=== PATIENT | female | born 1945 | race Caucasian/White ===

== ENCOUNTER → 2018-08-11 10:14 | Outpatient (CLI) | payer MEDICARE, BC, SELFPAY ==
[2018-08-11 10:41] LABS: Bacteria Urine None Seen; WBC Urine None Seen (0-5/HPF)
[2018-08-11 11:38] LABS: Add Manual Diff / Slide Review NO; Basophils Absolute Auto 0 /uL (0-100); Basophils Percent Auto 0.3 % (0-2); Eosinophils Absolute Auto 0 /uL (0-450); Eosinophils Percent Auto 0.7 % (2-4); Hematocrit 37.9 % (36-46); Hemoglobin 12.5 g/dL (12.0-16.0); Lymphocytes Absolute Auto 1900 /uL (1100-4500); Lymphocytes Percent Auto 28.8 % (25-40); Mean Corpuscular Hemoglobin 30.2 PG (26-34); Mean Corpuscular Volume 91.7 fL (80-100); Monocytes Absolute Auto 500 /uL (0-900); Neutrophils Absolute Auto 4000 /uL (1500-7000); Neutrophils Percent Auto 62.2 % (50-75); Platelet Count 257 X10^3/uL (150-400); Red Blood Cell Count 4.13 X10^6/uL (4.0-5.2); Red Cell Distribution Width 12.9 % (11.6-14.8); White Blood Cell Count 6.5 X10^3/uL (4.5-11.0)
[2018-08-11 11:55] LABS: BUN Creatinine Ratio 23.3 (6-22); Blood Urea Nitrogen 14 mg/dL (7-17); Calcium 9.2 mg/dL (8.4-10.2); Carbon Dioxide 31 mmol/L (22-32); Chloride 101 mmol/L (98-107); Estimated Glomerular Filt Rate > 60.0 mL/min (>60); Glucose 100 mg/dL (80-110); HEMOLYSIS < 15 (0-50); Potassium 4.2 mmol/L (3.4-5.1); Sodium 138 mmol/L (137-145)
[2018-08-11 12:37] LABS: Hemoglobin A1C% w Est Avg Glu 5.8 % (4.0-6.0)
[2018-08-11 13:06] LABS: Appearance Urine UA CLEAR; Bilirubin Urine UA NEGATIVE (NEGATIVE); Color Urine UA YELLOW; Glucose Urine UA NEGATIVE (Negative); Ketones Urine UA NEGATIVE (NEGATIVE); Leukocyte Esterase Urine UA NEGATIVE (NEGATIVE); Nitrite Urine UA NEGATIVE (Negative); Occult Blood Urine UA TRACE-LYSED (Negative); Protein Urine UA NEGATIVE (Negative); Specific Gravity Urine UA >=1.030 (1.000-1.035); Urobilinogen Urine UA 0.2 E.U./dL (0.2)
[2018-08-11 13:22] LABS: Culture Indicated Urine Cult Not Indicated; RBC Urine 0-1/HPF (0-5/HPF); Squamous Epithelial Cell Urine None Seen
== END ==
PROVIDERS: Visit Provider Orthopaedic Surgery
DX: Z01.818 Encounter for other preprocedural examination (principal); Z01.812 Encounter for preprocedural laboratory examination; N39.9 Disorder of urinary system, unspecified; Z13.1 Encounter for screening for diabetes mellitus
CPT/HCPCS: 36415; 80048; 81001; 83036; 85025; 93005

== ENCOUNTER → 2018-08-24 11:36 | Outpatient (CLI) | payer MEDICARE, BC, SELFPAY ==
--- NOTE | 2018-08-24 | DI.MRI.S_ITS ---
PROCEDURE: MR KNEE LT WO CON INDICATIONS: LEFT KNEE OSTEOARTHRITIS TECHNIQUE: Noncontrast sagittal PD fast spin echo and T2 fast spin echo with fat saturation, sagittal 3-D FLASH with fat saturation; coronal T1 spin echo and PD fast spin echo with fat saturation, and axial PD fast spin echo with fat saturation through the knee. COMPARISON: [facility] [place], CR, XR KNEE ARTHRITIC SERIES BI, 08/11/2018, 9:22. FINDINGS: Image quality: Excellent. Menisci: Medial extrusion of the medial meniscus. Linear oblique tearing of the anterior horn lateral masses. Amorphous high signal intensity within the anterior horn, body, and posterior horn medial meniscus, with inferior and superior articular surface extension, indicating multifocal degenerative tearing. Lateral meniscus demonstrates degenerative fraying of the free head chest, and is otherwise intact. Cruciate ligaments: The posterior cruciate ligament is intact. There is diffusely decreased T1 and increased T2 signal intensity along the course of the anterior cruciate ligament, indicating myxoid degeneration. Attenuation of the anterior cruciate ligament at the tibial insertion is present, consistent with partial thickness tearing. Medial structures: The medial collateral ligament appears intact. Visualized portions of the pes anserinus tendons appear normal. No abnormal bursal fluid. Lateral structures: The lateral collateral ligament, long and short heads of the biceps femoris tendon appear intact. The popliteus tendon appears normal. Iliotibial band appears normal. Anterior structures: The quadriceps and patellar tendons appear intact. Patellar alignment is normal. No femoral trochlear dysplasia or ventral trochlear prominence. No edema in the infrapatellar fat pad. Bones and cartilage: No bone marrow contusions or fractures. There is severe tricompartmental periarticular osteophyte formation. There is mild ill-defined subchondral degenerative marrow edema within the weightbearing aspects of the medial femoral condyle and medial tibial plateau, as well as the weightbearing aspect of the lateral femoral condyle. Severe diffuse articular cartilage loss overlies the weightbearing aspects of the medial femoral condyle and medial tibial plateau. Focal region of severe articular cartilage loss overlies the medial posterior weightbearing aspect of the lateral femoral condyle. Mild diffuse articular cartilage loss overlies the lateral tibial plateau. Mild articular cartilage loss overlies the medial and lateral patellar facets as well as the medial and lateral femoral trochlea. Joint space: There is a moderate knee joint effusion and a trace Soto's cyst. There is a ganglion cyst along the popliteus, measuring roughly 35 mm. Normal appearing synovial plicae are incidentally noted. IMPRESSION: 1. Severe tricompartment osteoarthritis with associated articular cartilage loss. 2. Myxoid degeneration of the anterior cruciate ligament. Partial-thickness tearing of the anterior cruciate ligament. 3. Medial meniscal tearing. Degenerative fraying of the free edge of the lateral meniscus. 4. Knee joint effusion. Trace Soto's cyst. Ganglion cyst along the popliteus. Dictated by: Heena Villeda M.D. on 08/24/2018 at 14:27 Approved by: Heena Villeda M.D. on 08/24/2018 at 14:51
== END ==
PROVIDERS: Visit Provider Orthopaedic Surgery
DX: M17.12 Unilateral primary osteoarthritis, left knee (principal); M23.262 Derangement of other lateral meniscus due to old tear or injury, left knee; M23.212 Derangement of anterior horn of medial meniscus due to old tear or injury, left knee; M23.222 Derangement of posterior horn of medial meniscus due to old tear or injury, left knee; M25.462 Effusion, left knee; M67.462 Ganglion, left knee
CPT/HCPCS: 73721

== ENCOUNTER 2018-09-26 09:00 | Observation (INO) | payer MEDICARE, BC, SELFPAY ==
[2018-09-11 12:53] VITALS: BMI 23.3
[2018-09-26] VITALS (12 sets, daily range): BP systolic 103–142; BP diastolic 48–83; PULSE 60–81; RESP 13–20; TEMP 36.2–36.7; O2SAT 95–100; BMI 23.3
--- NOTE | 2018-09-26 08:48 | DI.RAD.S_ITS ---
PROCEDURE: XR KNEE LT 1TO2V INDICATIONS: Postop left total knee arthroplasty. TECHNIQUE: 2 view(s) of the knee acquired. COMPARISON: None. FINDINGS: Bones: Patient is status post knee joint arthroplasty. Hardware components are in expected positions. Visualized bony structures are intact. Soft tissues: Overlying postoperative changes are noted. IMPRESSION: Status post left knee arthroplasty. Dictated by: Frances Deal M.D. on 09/26/2018 at 13:12 Approved by: Frances Deal M.D. on 09/26/2018 at 13:12
[2018-09-26] MEDS: LACTATED RINGERS 1,000 ML 42 ML IV ×2 (09:15→11:31)
[2018-09-26] MEDS: MELOXICAM 7.5 MG TABLET 15 MG PO (09:25)
[2018-09-26] MEDS: PREGABALIN 75 MG CAPSULE PO (09:25)
[2018-09-26] MEDS: ACETAMINOPHEN 325 MG TABLET 975 MG PO ×3 (09:25→22:11)
[2018-09-26] MEDS: VANCOMYCIN 1,000 MG/200 ML FROZ.PIGGY 200 MG IV (09:45)
[2018-09-26] MEDS: CEFAZOLIN 2 GM/100 ML FROZ.PIGGY IV ×2 (10:32→19:00)
[2018-09-26] MEDS: TRANEXAMIC ACID 1,000 MG VIAL 1000 MG IV ×2 (10:50→12:12)
--- NOTE | 2018-09-26 11:04 | SUR.OPER ---
Supine on padded OR bed. Pillow under head, arms secured on padded armboards <90 degree abduction. Safety belt across torso. Non-operative leg secured with tape over blanket over lower leg. Operative leg secured in DeMayo/Rigoberto positioner. Foam padded brace at thigh of operative leg.
[2018-09-26] MEDS: BUPIVACAINE 0.25% W/ EPI VIAL 50 ML INJ (11:17)
[2018-09-26] MEDS: BUPIVACAINE LIPOSOME 266 MG/20 ML VIAL INJ (11:18)
--- NOTE | 2018-09-26 13:20 | PM.OP.1 ---
Operative Date/Time/Diagnoses Date of procedure: 09/26/18 Time of procedure: 10:58 Pre-op diagnosis: Left knee osteoarthritis Post-op diagnosis: same Procedure & Clinicians Procedure: Left total knee arthroplasty Same procedure as scheduled: Yes Indications: The patient has had progressively worsening left knee pain with radiographic changes consistent with arthritis. Non-operative management has failed and the patient has requested total knee replacement. The risks, benefits and alternatives to surgery were discussed with the patient prior to proceeding. Risks discussed included, but were not limited to, failure to relieve pain, stiffness, infection, nerve damage, deep venous thrombosis, pulmonary embolism, stroke, coma, heart attack, permanent paralysis and , as well as the potential need for eventual revision of the prosthetic. Surgeon: Chitra Campa Gaming Department Head: Rosalia Monique Anesthesia Type: Spinal Operative Notes Findings: Severe left knee osteoarthritis, adequate stability Closure Type: primary Prosthetic devices, grafts, tissues, transplants, or devices: Campa and Nephew size 4 left tibia, size 6 left femur JOURNEY BCSS2, size 9 poly, 35 mm by 9 patella Applied: drain(s) Estimated Blood Loss (mL): 250 Blood products transfused: none Tourniquet time (min): 72 Procedure in detail: The patient was seen in the pre-operative area, where the patient identified the left knee as the operative site and this was marked with my initials. The patient received pre-operative antibiotics, and was taken to the operating room and placed on the operative table in the supine position. After satisfactory anesthesia, a part time receptionist out was performed. The left leg was encircled with a tourniquet about the proximal thigh, and the leg was prepared from the toes to the tourniquet with ChloroPrep in the usual fashion and draped through sterile drapes. The leg was elevated and exsanguinated with Eschmark bandage and the tourniquet inflated to [250] mmHg pressure. The knee was approached through an approximately 18 cm incision centered over the patella and carried into the knee through a medial parapatellar arthrotomy. A portion of the medial and lateral meniscus was resected. Soft tissue was carefully mobilized around the patella the patella was measured with a caliper. Bone was resected from the patella and the patellar height was reconstituted with up an appropriate sized patellar component. For a cover was then placed on the patella. A small amount of additional medial and lateral meniscus was resected. The visionare guide fit well to the distal femur. It looked like an appropriate distal femoral cut and the cut was made without difficulty. The rotation was assessed and the appropriate size femoral guide was placed on the distal femur and finishing cuts were made. There was no evidence of notching. The anterior, posterior and chamfer cuts were then made. The posterior osteophytes and soft tissues were then removed. The posterior capsule was injected with part of a mixture of 60 ml 0.25% Marcaine mixed with 20 ml Exparel for post operative pain control. The remainder of this mixture was injected into the capsule and subcutaneous tissues during cement curing. The tibia was prepared and the visionaire guide fit well to the distal tibia. The rotation was assessed. The patient was placed in extension residual medial and lateral meniscus as well as any residual bone was carefully resected. [No] additional tibia was resected. Hemostasis was achieved especially posteriorly. Additional local was injected into the posterior capsule. The extension gap was assessed and additional releases for gap balancing were performed as necessary. It was checked with the gap library media technician. The femoral component was trial was placed and the notch was finished. Trial tibial and femoral components were then placed and the knee placed through a range of motion. Range of motion was [0-130], with good stability throughout the range. The trials were then removed, and the tibia was finished. The bone was prepared with pulsatile lavage, and dried with a sponge. Cement was applied and the final prosthetics placed. Excess cement was removed during and after cement curing. After confirming there was no extruded cement posteriorly, the final tibial insert was placed. The knee was copiously irrigated and the tourniquet deflated. Hemostasis was obtained with the bovie. A drain was placed and brought out superolaterally. The capsule was closed with interrupted vicryl. The subcutaneous layer was closed with barbed sutures, and the skin with a running 3-0 V-Lock suture and Surgical glue. An Aquacel Ag dressing was applied and the patient was taken to recovery having tolerated the procedure well. Complications: none Condition: stable Disposition: Acute Care Plan for aftercare: The patient will be maintained on a standard total knee replacement protocol with weight bearing as tolerated. The patient will receive aspirin and sequential compression devices for DVT prophylaxis. The patient will be discharged home when safe for the home environment.
[2018-09-26] MEDS: LACTATED RINGERS 1,000 ML 125 ML IV ×2 (14:24→22:56)
--- NOTE | 2018-09-26 14:48 | PC.NURSE ---
1350 Pt arrived via bed from PACU. Pt A&Ox3. dressing w/ar wrap to L knee surgsite intact, C&D. Hemovac in place & clamped, to be unclamped at 1450. Pt able to do ankle waves, SCDs placed BLE,1430 IV fluids infusing. Pt has own IS from home, is aware of how to use. Pt taking in PO fluids & crackers. Friends at bedside, no c/o.
--- NOTE | 2018-09-26 16:30 | PT.IIE ---
Current Diagnoses Unilateral primary osteoarthritis, left knee (09/26/18) Surgery Performed Operation Date: 09/26/18 10:45 Actual Procedures p Total Knee Arthroplasty(Left) - Chitra Campa MD Surgical History (Last Updated 09/11/18 @ 13:21 by Savannah Lopez, RN) History of colonoscopy with polypectomy (Acute) Hx of right knee surgery (Acute) Hx of tonsillectomy (Acute) Medical History (Last Updated 09/11/18 @ 13:21 by Savannah Lopez RN) Arthritis (Acute) BCC (basal cell carcinoma) (Acute ~2018) Bilateral leg cramps (Acute) Carpal tunnel syndrome of right wrist (Acute) Compressed cervical disc (Acute) Eczema of both hands (Acute) Numbness and tingling in both hands (Acute) Osteoarthritis (Acute) Pneumonia (Acute) Seasonal allergies (Acute) Shoulder pain (Acute) Spinal stenosis (Acute) Physical Therapy Inpatient Evaluation/Re-Eval M1 PT/OT-IP Prior Functional Status Start: 09/26/18 17:44 Freq: NEEDED Status: Active Protocol: Document 09/26/18 16:30 AB (Rec: 09/26/18 17:56 AB [id number]) Medical Review Prior Functional Status Medical History Reviewed Yes Communication able to make needs known Mobility and Gait pt stated that she is independent with all mobilities and ambulation without AD Social History Household Members none Living Arrangements House Number of Floors (Floors) One Floor Number of Stairs To Enter/Railing? pt plans to stay at her friend 's house : 1 level house with 18 steps to enter with R rail ascending Home Environment Standard Height Toilet Tub/Shower Home Equipment Front Wheel Walker Straight Cane Crutches Raised Toilet Seat Without Armrests Grab Bars Near Toilet Grab Bars In Shower M2 PT-IP Current Condition Start: 09/26/18 17:44 Freq: NEEDED Status: Active Protocol: Document 09/26/18 16:30 AB (Rec: 09/26/18 17:56 AB [id number]) Physical Therapy Current Condition Current Condition Evaluation Date 09/26/18 Treatment Diagnosis s/p L TKA; difficulty in walking Onset Date 09/26/18 Weight Bearing Status Weight Bearing Status Weight Bear as Tolerated M3 PT-IP Subjective Start: 09/26/18 17:44 Freq: NEEDED Status: Active Protocol: Document 09/26/18 16:30 AB (Rec: 09/26/18 17:56 AB [id number]) Subjective Physical Therapy Visit Type Type Initial Evaluation Visit Start Time 16:30 Visit Stop Time 17:15 Total Visit Minutes 45 Number of ART EDITOR Visits 0 Physical Therapy Visit Comments Patient Comments pt requesting to use the toilet Therapy Pain Assessment Pain When Pain Assessed At Rest Pain Present Pain Present Pain Reported Location Left Knee Intensity 5 Scale Used Numeric (1 - 10) Description Cramping Pain Management Techniques Apply Cold Re-positioning Timing of Activity with Medications M4 PT-IP Mobility and Gait Start: 09/26/18 17:44 Freq: NEEDED Status: Active Protocol: Document 09/26/18 16:30 AB (Rec: 09/26/18 17:56 AB [id number]) PT-Bed Mobility Assessment Supine to Sit Supine to Sit Standby Assistance 1 Person Assistance Sit to Supine Sit to Supine Standby Assistance PT-Transfer Assessment Sit to and From Stand Sit to and from Stand Minimal Assistance Equipment Transfer Assistive Device Gait Belt Front Wheeled Walker Orthotic/Prosthetic Devices or Brace: No Transfers Transfer Destination Toilet Transfer Technique pt ambulated to the toilet using FWW Transfer Ability Level of Assist Minimal Assistance 1 Person Assistance Comments Mobility Comments pt completed bed mobility supine to sit SBA with cues for techniques. pt was able to sit on EOB SBA. completed sit to stand from EOB min A and cues and ambulated to the toilet using FWW ~ 10 ft min A and cues. pt completed is to stand from the toilet using grab bar for support CGA and ambulated towards the sink and was able to maintain standing balance using fWW for support CGA while doing handwashing. pt ambulated back to bed using FWW CGA to min A and cues. pt completed sit to supine SBA and cues. ice pack provided, call light and table placed within reach. Gait Assessment Gait Distance (Feet) 10 Assistive Devices Assistive Device Gait Belt Front Wheeled Walker Orthotic/Prosthetic Devices or Brace: No Gait Deviations General Gait Pattern Antalgic Decreased Stride Length Decreased Feet Clearance Factors Limiting Gait Function Factors Limiting Gait Function Decreased Activity Tolerance Decreased Strength Limited Range of Motion Pain Poor Balance Poor Safety Awareness PT-Balance Assessment Sitting Balance and Reactions Static Sitting Balance Ability Good Dynamic Sitting Balance Ability Good Standing Balance and Reactions Static Standing Balance Ability Fair Dynamic Standing Balance Ability Fair Device Used FWW M5 PT-IP Objective Assessments Start: 09/26/18 17:44 Freq: NEEDED Status: Active Protocol: Document 09/26/18 16:30 AB (Rec: 09/26/18 17:56 AB [id number]) Orientation Orientation/Cognition Level of Alertness Alert Orientation Name Age Place Situation Language Function Ability No Deficits Noted Safety Awareness Decreased Safety Awareness Memory Description Short Term Impaired Gross Range of Motion Lower Extremity ROM Assessment Left Impaired Impairments L knee extension : lacking ~ 10 degrees to O L knee flexion: ~ 50 deg Strength Lower Extremity Strength Assessment Left Impaired Hip 4-/5 Knee 3+/5 Coordination Assessment Gross Coordination Gross Coordination WNL Sensation Assessment Sensation Gross Sensation WNL Muscle Tone Muscle Tone WNL Yes M6 PT-IP Treatment Start: 09/26/18 17:44 Freq: NEEDED Status: Active Protocol: Document 09/26/18 16:30 AB (Rec: 09/26/18 17:56 AB [id number]) Physical Therapy Treatment Exercises Exercises Quad Sets Heel Slides Education Education Provided Precautions Weight Bearing Status Post-Op Packet Safety M7 PT-IP Assessment and Plan Start: 09/26/18 17:44 Freq: NEEDED Status: Active Protocol: Document 09/26/18 16:30 AB (Rec: 09/26/18 17:56 AB [id number]) PT Summary Assessment and Plan Potential Rehabilitation Potential Good Status of Condition at Evaluation Stable Summary Impairments Pain ROM Strength Balance Coordination Bed Mobility Transfers Gait Activity Tolerance Assessment Summary pt requiring min A with mobility and will likely progress during hospital stay. will conduct caregiver training if appropriate. stair climbing training will also be completed prior to d/c . pt stated that she is set up for outpt PT. Goals Bed Mobility Goal Standby Assistance Transfer Goal Standby Assistance Front Wheeled Walker Gait Goal Standby Assistance Front Wheel Walker Gait Distance 200 Other Goals up/down 18 steps with R rail ascending SBA Days to Meet Goals 3 Frequency of Treatment Frequency Of Treatment Twice a Day Treatment Plan Physical Therapy Treatment Plan Bed Mobility Training Transfer Training Gait Training Therapeutic Exercise Balance Retraining Post Op Education Discharge Planning Hot or Cold Pack Neuromuscular Re-ed Coordination Retraining Manual Therapy Other Recommendations and Next Treatment ambulation, stair climbing Focus training Recommendations To Nursing Amount of Assist Needed 1 Person Assist Discharge Recommendations PT Discharge Recommendations Home with Assistance Outpatient PT
[2018-09-26] MEDS: NAPROXEN 250 MG TABLET 500 MG PO (17:05)
[2018-09-26] MEDS: hydrOXYzine pamoate 25 MG CAPSULE PO ×2 (17:28→23:55)
--- NOTE | 2018-09-26 19:33 | PC.NURSE ---
Addendum entered by Abiola Lagos R.N. 09/26/18 22:24: Stable post op course. Assisted to BR x 2 IVF continue as per orders. Dsg CDI Call light w/n reach, bed alarm on for pt safety. Continue w/plan of care. Original Note: Pt stable post op course. Dsg to left knee CDI IVF infusing via pump into LFA w/o incidense. Assisted to BR. Med at 1705 w/ naproxan for discomfort w/good relief. Call light w/in reach, bed alarm on for pt safety.
[2018-09-26] MEDS: ASPIRIN EC 81 MG TABLET PO (22:12)
[2018-09-27] MEDS: CEFAZOLIN 2 GM/100 ML FROZ.PIGGY IV (02:48)
[2018-09-27] MEDS: OXYCODONE IR 5 MG TABLET PO ×3 (02:59→11:59)
[2018-09-27 05:10] VITALS: BP 122/56; PULSE 65; RESP 16; TEMP 37.2; O2SAT 99
[2018-09-27 05:53] LABS: Hematocrit 32.6 % (36-46); Hemoglobin 10.8 g/dL (12.0-16.0)
[2018-09-27 07:00] VITALS: BP 133/66; PULSE 76; RESP 16; TEMP 37; O2SAT 96
[2018-09-27] MEDS: hydrOXYzine pamoate 25 MG CAPSULE PO (08:00)
[2018-09-27] MEDS: ACETAMINOPHEN 325 MG TABLET 975 MG PO ×3 (08:01→21:13)
[2018-09-27] MEDS: DOCUSATE 100 MG CAPSULE PO (08:58)
[2018-09-27] MEDS: ASPIRIN EC 81 MG TABLET PO ×2 (08:58→21:14)
[2018-09-27] MEDS: NAPROXEN 250 MG TABLET 500 MG PO ×2 (08:58→18:49)
--- NOTE | 2018-09-27 09:27 | PM.PNPO.1 ---
Subjective Date Patient Seen: 09/27/18 Time Patient Seen: 09:27 Interval history: Hospital day 2, postop day 1 following left total knee arthroplasty by Dr. Campa. She has remained stable postoperatively. States she did not get much sleep last night because of knee pain. Was up briefly with PT yesterday just in the room to the bathroom. Taking oxycodone 5 mg for pain. Also taking naproxen 500 mg and Tylenol. Continues having a drainage from Hemovac with 120 mL her last shift. Exam Vital Signs (past 8 hours): - 09/27/18 05:10 09/27/18 07:00 Temperature 99 F 98.6 F Pulse Rate 65 76 Respiratory Rate 16 16 Blood Pressure 122/56 L 133/66 Pulse Oximetry 99 96 Oxygen Delivery Method Room Air Narrative Exam Narrative: Alert, oriented no acute distress sitting in chair. Legs. Mikel wrap an Aquacel dressing to left knee is dry without drainage or inflammation. Hemovac in place. No calf pain or swelling. Pulses symmetrical. Objective Labs Result Diagrams: 09/27/18 05:06 Labs: Laboratory Results - last 24 hr 09/27/18 05:06 Hgb 10.8 L Hct 32.6 L Assessment & Plan Post-op Postoperative Procedures Operation Date: 09/26/18 10:45 Actual Procedures Side Surgeon p Total Knee Arthroplasty Left Chitra Campa MD Plan: Will observe for hopeful decrease in Hemovac drainage today. Will need drainage to decrease significantly before DC. Patient will remained today and work with PT. She does have several stairs at home she will be staying at. Will increase oxycodone dose to get better pain control. Anticipate possible discharge home tomorrow if stable. She is scheduled to go to [facility] for PT. Quality VTE Deep Vein Thrombosis/Pulmonary Embolism Present on Admission: No
--- NOTE | 2018-09-27 10:55 | PT.IPTN ---
Current Diagnoses Unilateral primary osteoarthritis, left knee (09/26/18) Surgery Performed Operation Date: 09/26/18 10:45 Actual Procedures p Total Knee Arthroplasty(Left) - Chitra Campa MD Physical Therapy Treatment Note M2 PT-IP Current Condition Start: 09/26/18 17:44 Freq: NEEDED Status: Active Protocol: Document 09/26/18 16:30 AB (Rec: 09/26/18 17:56 AB [id number]) Physical Therapy Current Condition Current Condition Evaluation Date 09/26/18 Treatment Diagnosis s/p L TKA; difficulty in walking Onset Date 09/26/18 Weight Bearing Status Weight Bearing Status Weight Bear as Tolerated M3 PT-IP Subjective Start: 09/26/18 17:44 Freq: NEEDED Status: Active Protocol: Document 09/27/18 11:20 GGD (Rec: 09/27/18 12:38 GGD [id number]) Subjective Physical Therapy Visit Type Type Treatment Note Visit Start Time 10:55 Visit Stop Time 11:20 Total Visit Minutes 25 Number of WAFER MACHINE OPERATOR Visits 1 Physical Therapy Visit Comments Patient Comments Pt states she is feeling better. Therapy Pain Assessment Pain When Pain Assessed At Rest Pain Present Pain Present Pain Reported M4 PT-IP Mobility and Gait Start: 09/26/18 17:44 Freq: NEEDED Status: Active Protocol: Document 09/27/18 11:20 GGD (Rec: 09/27/18 12:38 GGD [id number]) PT-Transfer Assessment Sit to and From Stand Sit to and from Stand Contact Guard Assistance Use of Upper Extremities Equipment Transfer Assistive Device Gait Belt Front Wheeled Walker Orthotic/Prosthetic Devices or Brace: No Transfers Transfer Destination Chair Transfer Ability Level of Assist Minimal Assistance 1 Person Assistance Gait Assessment Gait Gait Assistance Required: Contact Guard Assist Distance (Feet) 100 Assistive Devices Assistive Device Gait Belt Front Wheeled Walker Orthotic/Prosthetic Devices or Brace: No Gait Deviations General Gait Pattern Antalgic Decreased Stride Length Decreased Feet Clearance Factors Limiting Gait Function Factors Limiting Gait Function Decreased Activity Tolerance Decreased Strength Limited Range of Motion Pain Poor Balance Poor Safety Awareness M5 PT-IP Objective Assessments Start: 09/26/18 17:44 Freq: NEEDED Status: Active Protocol: Document 09/26/18 16:30 AB (Rec: 09/26/18 17:56 AB [id number]) Orientation Orientation/Cognition Level of Alertness Alert Orientation Name Age Place Situation Language Function Ability No Deficits Noted Safety Awareness Decreased Safety Awareness Memory Description Short Term Impaired Gross Range of Motion Lower Extremity ROM Assessment Left Impaired Impairments L knee extension : lacking ~ 10 degrees to O L knee flexion: ~ 50 deg Strength Lower Extremity Strength Assessment Left Impaired Hip 4-/5 Knee 3+/5 Coordination Assessment Gross Coordination Gross Coordination WNL Sensation Assessment Sensation Gross Sensation WNL Muscle Tone Muscle Tone WNL Yes M6 PT-IP Treatment Start: 09/26/18 17:44 Freq: NEEDED Status: Active Protocol: Document 09/27/18 11:20 GGD (Rec: 09/27/18 12:38 GGD [id number]) Physical Therapy Treatment Exercises Exercises Quad Sets Heel Slides Seated Knee Flexion/Extension Education Education Provided Precautions Safety M7 PT-IP Assessment and Plan Start: 09/26/18 17:44 Freq: NEEDED Status: Active Protocol: Document 09/27/18 11:20 GGD (Rec: 09/27/18 12:38 GGD [id number]) PT Summary Assessment and Plan Summary Assessment Summary Pt improving with mobility. She was safe with mobility. She was able to progress gait without LOB. She will need to completed stair climbing before D/C. Frequency of Treatment Frequency Of Treatment Twice a Day Treatment Plan Physical Therapy Treatment Plan Bed Mobility Training Transfer Training Gait Training Therapeutic Exercise Balance Retraining Post Op Education Discharge Planning Hot or Cold Pack Neuromuscular Re-ed Coordination Retraining Manual Therapy Other Recommendations and Next Treatment ambulation, stair climbing Focus training Recommendations To Nursing Amount of Assist Needed 1 Person Assist Discharge Recommendations PT Discharge Recommendations Home with Assistance Outpatient PT
[2018-09-27 12:00] VITALS: BP 113/58; PULSE 85; RESP 16; TEMP 36.5; O2SAT 98
--- NOTE | 2018-09-27 15:15 | PT.IPTN ---
Current Diagnoses Unilateral primary osteoarthritis, left knee (09/26/18) Surgery Performed Operation Date: 09/26/18 10:45 Actual Procedures p Total Knee Arthroplasty(Left) - Chitra Campa MD Physical Therapy Treatment Note M2 PT-IP Current Condition Start: 09/26/18 17:44 Freq: NEEDED Status: Active Protocol: Document 09/26/18 16:30 AB (Rec: 09/26/18 17:56 AB [id number]) Physical Therapy Current Condition Current Condition Evaluation Date 09/26/18 Treatment Diagnosis s/p L TKA; difficulty in walking Onset Date 09/26/18 Weight Bearing Status Weight Bearing Status Weight Bear as Tolerated M3 PT-IP Subjective Start: 09/26/18 17:44 Freq: NEEDED Status: Active Protocol: Document 09/27/18 15:15 GGD (Rec: 09/27/18 16:17 GGD [id number]) Subjective Physical Therapy Visit Type Type Treatment Note Visit Start Time 14:40 Visit Stop Time 15:15 Total Visit Minutes 35 Number of FLOWER BUNCHER OR PICKER Visits 2 Physical Therapy Visit Comments Patient Comments Pt want's to try the stairs. Therapy Pain Assessment Pain When Pain Assessed At Rest Pain Present Pain Present Pain Reported M4 PT-IP Mobility and Gait Start: 09/26/18 17:44 Freq: NEEDED Status: Active Protocol: Document 09/27/18 15:15 GGD (Rec: 09/27/18 16:17 GGD [id number]) PT-Bed Mobility Assessment Supine to Sit Supine to Sit Standby Assistance 1 Person Assistance Sit to Supine Sit to Supine Standby Assistance Scooting Scooting to Edge of Bed Standby Assistance PT-Transfer Assessment Sit to and From Stand Sit to and from Stand Contact Guard Assistance Use of Upper Extremities Equipment Transfer Assistive Device Gait Belt Front Wheeled Walker Orthotic/Prosthetic Devices or Brace: No Transfers Transfer Destination Bed Toilet Transfer Ability Level of Assist Minimal Assistance 1 Person Assistance Gait Assessment Gait Gait Assistance Required: Contact Guard Assist Distance (Feet) 400 Assistive Devices Assistive Device Gait Belt Front Wheeled Walker Orthotic/Prosthetic Devices or Brace: No Gait Deviations General Gait Pattern Antalgic Decreased Stride Length Decreased Feet Clearance Factors Limiting Gait Function Factors Limiting Gait Function Decreased Activity Tolerance Decreased Strength Limited Range of Motion Pain Poor Balance Poor Safety Awareness Stair Climbing Assessment Evaluation Level of Assist On Stairs Contact Guard Assistance Devices Stair Climbing Assistive Devices Right Railing Technique/Endurance Stair Climbing Direction Ascend and Descend Stair Climbing Technique Step to Step Number of Steps Climbed 3 Query Text: Stair Climbing Set # Repetitions (reps) 2 M5 PT-IP Objective Assessments Start: 09/26/18 17:44 Freq: NEEDED Status: Active Protocol: Document 09/26/18 16:30 AB (Rec: 09/26/18 17:56 AB [id number]) Orientation Orientation/Cognition Level of Alertness Alert Orientation Name Age Place Situation Language Function Ability No Deficits Noted Safety Awareness Decreased Safety Awareness Memory Description Short Term Impaired Gross Range of Motion Lower Extremity ROM Assessment Left Impaired Impairments L knee extension : lacking ~ 10 degrees to O L knee flexion: ~ 50 deg Strength Lower Extremity Strength Assessment Left Impaired Hip 4-/5 Knee 3+/5 Coordination Assessment Gross Coordination Gross Coordination WNL Sensation Assessment Sensation Gross Sensation WNL Muscle Tone Muscle Tone WNL Yes M6 PT-IP Treatment Start: 09/26/18 17:44 Freq: NEEDED Status: Active Protocol: Document 09/27/18 15:15 GGD (Rec: 09/27/18 16:17 GGD [id number]) Physical Therapy Treatment Exercises Exercises Quad Sets Heel Slides Seated Knee Flexion/Extension M7 PT-IP Assessment and Plan Start: 09/26/18 17:44 Freq: NEEDED Status: Active Protocol: Document 09/27/18 15:15 GGD (Rec: 09/27/18 16:17 GGD [id number]) PT Summary Assessment and Plan Summary Assessment Summary Pt improving with mobility. She was able to progress gait. She was safe and stable with stair mobility. Pt plans on D/ C to friends house when medically stable. Frequency of Treatment Frequency Of Treatment Twice a Day Treatment Plan Physical Therapy Treatment Plan Bed Mobility Training Transfer Training Gait Training Therapeutic Exercise Balance Retraining Post Op Education Discharge Planning Hot or Cold Pack Neuromuscular Re-ed Coordination Retraining Manual Therapy Other Recommendations and Next Treatment ambulation, stair climbing Focus training Recommendations To Nursing Amount of Assist Needed 1 Person Assist Discharge Recommendations PT Discharge Recommendations Home with Assistance Outpatient PT
--- NOTE | 2018-09-27 15:48 | CM.IDA ---
Discharge Planning/Care Management Advanced directive, confirm from FAMILY Start: 09/26/18 14:38 Freq: Q24H Status: Active Protocol: Document 09/26/18 19:00 KMD (Rec: 09/26/18 19:10 KMD [id number]) Advance Directive, confirm on record Time 19:08 Person contacted Pt Copy received No CM Discharge Assessment Start: 09/27/18 15:33 Freq: Status: Active Protocol: Document 09/27/18 15:33 MISSY (Rec: 09/27/18 15:48 MISSY [id number]) Discharge Planning Assessment Assigned Sociology Teacher RONALD Palma DPOA/Assigned Designee Name Savannah Carlos, friend Contact Information [phone] Advance Directives? Yes Advance Directives on File No History Provided By Patient Prior Living Arrangements House Household Members none Type of transporation used prior to Drives own vehicle admit Independent with ADL's Yes Is patient alert and oriented? Yes Barriers to Discharge No Comment Pt is POD#1 from Lt TKA w/Dr Campa. Payer: Medicare/ Federal. Reviewed chart and met w/pt, explained role. She is indp. at baseline, anticipates no barriers to safe DC home w/ assist from the friend she will be staying with during her recovery. Pt asks about HH service in case she is not capable of making it to outpt PT; this AIR BRAKE OPERATOR reviewed the service and encouraged further discussion after addtl work w/ PT. Pt agreeable . Following closely. PT= Home w/ outpt PT. RONALD Rossi Discharge Plan Home Transportation Arrangement Family Referrals Initiated None needed Additional Comment R/O need for HH upon DC. Whiteboard Updated in Patient Room with Yes name and ext. # of Sociology Teacher Review Status In Process
[2018-09-27 15:55] VITALS: BP 121/55; PULSE 81; RESP 18; TEMP 37.2; O2SAT 99
--- NOTE | 2018-09-27 16:31 | PC.NURSE ---
Addendum entered by Abiola Lagos R.N. 09/27/18 22:24: Pt assisted to BR w/o incidence. Med w/naproxen w/ good relief. Dsg to left knee CDI. HL intact/patent. Call light w/in reach. Continue w/plan of care. Original Note: Pt working w/PT early in shift. Lungs clear, SpO2 97% RA HL LFA intact/patent. Dsg to left knee CDI, pulses ++ Denies discomfort at this time. Call light w/in reach, bed alarm on for pt safety.
[2018-09-27 20:00] VITALS: BP 130/60; PULSE 76; RESP 20; TEMP 37.1; O2SAT 98
[2018-09-28 00:25] VITALS: BP 133/68; PULSE 79; RESP 16; TEMP 36.8; O2SAT 97
[2018-09-28] MEDS: hydrOXYzine pamoate 25 MG CAPSULE PO ×2 (00:38→08:12)
[2018-09-28] MEDS: OXYCODONE IR 5 MG TABLET PO ×3 (00:38→13:18)
--- NOTE | 2018-09-28 05:00 | PC.NURSE ---
NOC SHIFT: After initial uncomfortable period at start of shift, oxycodone and vistaril helpful for pain relief. Patient able to sleep most of shift without voiced complaint. VSS, No distress observed. Patient ambulated to bathroom with FWW with stand-by assistance of LOOM STARTER. Will continue to monitor.
[2018-09-28 05:43] VITALS: BP 137/73; PULSE 67; RESP 16; TEMP 36.8; O2SAT 98
--- NOTE | 2018-09-28 07:29 | PM.DS.1 ---
History of Present Illness Date Patient Seen: 09/28/18 Chief complaint: [id number] LT TKA Narrative: Patient is seen bedside status post left total knee replacement postop day 2. Patient is doing better today, her pain is better controlled and she has cleared physical therapy. Drainage has dropped off significantly. She is ready to go home. Discharge Providers Date of admission: 09/26/18 08:29 Discharge Date: 09/28/18 Consults: 09/26/18 08:48 Consult to Anesthesiology Routine Comment: Consulting Provider: Anesthesiologist Reason for consultation: Regional block for post operative pain control 09/26/18 13:57 Consult to Discharge Planning Routine Comment: Consult to Physical Therapy Evaluate & Treat Comment: Physician Instructions: postop TKA protocol Consult to Respiratory Therapy Evaluate & Treat Comment: Physician Instructions: Evaluate and treat Discharge provider: Rosalia Monique PA-C Summary Discharge Diagnosis: Left knee osteoarthritis Hospital Course: Patient admitted to the hospital s/p L.TKA on 09/26/[address] Campa. Patient tolerated the procedure well with no major complications. They were transferred to the acute care floor where they were placed on the standard joint replacement pathway and protocol. They were seen by physical therapy who recommended that they be discharged home. They were stable and ready for discharge on 09/28/18. Status at Discharge Cognitive/behavioral status at discharge: oriented Functional status at discharge: uses cane/walker Overall status at discharge: patient is progressing back to baseline Time Spent with Patient Less than 30 minutes Exam Vital Signs (past 8 hours): - 09/28/18 00:25 09/28/18 05:43 Temperature 98.2 F 98.3 F Pulse Rate 79 67 Respiratory Rate 16 16 Blood Pressure 133/68 137/73 Pulse Oximetry 97 98 Oxygen Delivery Method Room Air Oxygen Flow Rate 0 Narrative Exam Narrative: well-developed well-nourished acute distress alert oriented x3. Dressing is clean dry and intact. No signs of drainage and minimal erythema And minimal generalized joint swelling. calf soft compressible full range of motion of foot ankle. Neurovascularly intact in this extremity. Objective Labs Result Diagrams: 09/27/18 05:06 Discharge Plan Discharge Plan Patient Disposition: Home Discharge Med Rec/Prescriptions Prescriptions: New acetaminophen 325 mg Tablet 975 mg PO TID Qty: 0 RF: 0 naproxen 250 mg Tablet 500 mg PO BIDWM Qty: 0 RF: 0 aspirin 81 mg Tablet,Delayed Release (Dr/Ec) 81 mg PO BID Qty: 0 RF: 0 oxycodone 5 mg Tablet 5 mg PO Q3HR PRN (Reason: Pain, Moderate (4-6)) Qty: 0 RF: 0 hydroxyzine HCl 25 mg tablet 25 mg PO QID PRN (Reason: muscle spasm) Qty: 50 RF: 0 oxycodone 5 mg tablet 5 mg PO Q4-6H PRN (Reason: pain) Qty: 40 RF: 0 Follow up/Referrals: Chitra Campa MD [Physician] - (Follow up in 5-7 days at your previously scheduled appointment) Provider Discharge Instructions Diet: Diet as Tolerated Activity: Weightbearing as tolerated, use walker until cleared by physical therapy. Elevate operative leg regularly to reduce swelling. Cold/Heat Therapy: Apply ice to affected area for 20 minutes at a time at least hourly while awake. Skin/Wound/Dressing Care Report to your healthcare provider any signs of infection, such as:: chills, fever, night sweats, increased pain, unusual drainage and unusual redness Dressing: Keep dressing clean, dry, and intact. May shower with it in place but no soaking. Visit Report/Discharge Packet Instructions: DI for Knee Replacement, Oxycodone, Hydroxyzine Stand Alone Forms: Surgery Discharge Discharge Data Attending Provider: Chitra Campa Admit Date/Time: 09/26/18 09:00 Discharges patient from system. Discharge Date/Time: 09/28/18 14:04 Quality VTE Deep Vein Thrombosis/Pulmonary Embolism Present on Admission: No
[2018-09-28 08:00] VITALS: BP 136/67; PULSE 74; RESP 18; TEMP 36.8; O2SAT 97
[2018-09-28] MEDS: ASPIRIN EC 81 MG TABLET PO (08:13)
[2018-09-28] MEDS: ACETAMINOPHEN 325 MG TABLET 975 MG PO (08:13)
[2018-09-28] MEDS: DOCUSATE 100 MG CAPSULE PO (08:13)
[2018-09-28] MEDS: NAPROXEN 250 MG TABLET 500 MG PO (08:13)
--- NOTE | 2018-09-28 10:35 | PC.NURSE ---
Addendum entered by Lev Yang R.N. 09/28/18 14:03: patient set up assist to shower and then showered indep. hv site drsg saturated, changed drsg. no further bleeding. re-applied ar wrap. scripts to patient. reviewed all dc paperwork thoroughly with patient w/ her friend present who she is going home with. patient left in no s/sx's of distress with all belongings and paperwork. Original Note: DR BENITEZ JUST SAW PATIENT, SHE DC'D PATIENT'S HV. PAIN WELL CONTROLLED. PATIENT WOULD LIKE SHOWER TODAY. CMS INTACT. [facility] CDI.
--- NOTE | 2018-09-28 11:00 | PT.IPTN ---
Current Diagnoses Unilateral primary osteoarthritis, left knee (09/26/18) Surgery Performed Operation Date: 09/26/18 10:45 Actual Procedures p Total Knee Arthroplasty(Left) - Chitra Campa MD Physical Therapy Treatment Note M2 PT-IP Current Condition Start: 09/26/18 17:44 Freq: NEEDED Status: Active Protocol: Document 09/26/18 16:30 AB (Rec: 09/26/18 17:56 AB [id number]) Physical Therapy Current Condition Current Condition Evaluation Date 09/26/18 Treatment Diagnosis s/p L TKA; difficulty in walking Onset Date 09/26/18 Weight Bearing Status Weight Bearing Status Weight Bear as Tolerated M3 PT-IP Subjective Start: 09/26/18 17:44 Freq: NEEDED Status: Active Protocol: Document 09/28/18 11:00 GGD (Rec: 09/28/18 11:58 GGD [email or web address]) Subjective Physical Therapy Visit Type Type Treatment Note Visit Start Time 10:30 Visit Stop Time 11:00 Total Visit Minutes 30 Number of LIVESTOCK SPECULATOR Visits 3 Physical Therapy Visit Comments Patient Comments Pt is feeling better. M4 PT-IP Mobility and Gait Start: 09/26/18 17:44 Freq: NEEDED Status: Active Protocol: Document 09/28/18 11:00 GGD (Rec: 09/28/18 11:58 GGD [id number]) PT-Transfer Assessment Sit to and From Stand Sit to and from Stand Contact Guard Assistance Use of Upper Extremities Equipment Transfer Assistive Device Gait Belt Front Wheeled Walker Orthotic/Prosthetic Devices or Brace: No Transfers Transfer Destination Bed Transfer Ability Level of Assist Minimal Assistance 1 Person Assistance Gait Assessment Gait Gait Assistance Required: Contact Guard Assist Distance (Feet) 350 Assistive Devices Assistive Device Gait Belt Front Wheeled Walker Orthotic/Prosthetic Devices or Brace: No Gait Deviations General Gait Pattern Antalgic Decreased Stride Length Decreased Feet Clearance Factors Limiting Gait Function Factors Limiting Gait Function Decreased Activity Tolerance Decreased Strength Limited Range of Motion Pain Poor Balance Poor Safety Awareness Stair Climbing Assessment Evaluation Level of Assist On Stairs Contact Guard Assistance Devices Stair Climbing Assistive Devices Right Railing Technique/Endurance Stair Climbing Direction Ascend and Descend Stair Climbing Technique Step to Step Number of Steps Climbed 3 Query Text: Stair Climbing Set # Repetitions (reps) 2 M5 PT-IP Objective Assessments Start: 09/26/18 17:44 Freq: NEEDED Status: Active Protocol: Document 09/26/18 16:30 AB (Rec: 09/26/18 17:56 AB [id number]) Orientation Orientation/Cognition Level of Alertness Alert Orientation Name Age Place Situation Language Function Ability No Deficits Noted Safety Awareness Decreased Safety Awareness Memory Description Short Term Impaired Gross Range of Motion Lower Extremity ROM Assessment Left Impaired Impairments L knee extension : lacking ~ 10 degrees to O L knee flexion: ~ 50 deg Strength Lower Extremity Strength Assessment Left Impaired Hip 4-/5 Knee 3+/5 Coordination Assessment Gross Coordination Gross Coordination WNL Sensation Assessment Sensation Gross Sensation WNL Muscle Tone Muscle Tone WNL Yes M6 PT-IP Treatment Start: 09/26/18 17:44 Freq: NEEDED Status: Active Protocol: Document 09/28/18 11:00 GGD (Rec: 09/28/18 11:58 GGD [id number]) Physical Therapy Treatment Exercises Exercises Quad Sets Heel Slides Seated Knee Flexion/Extension M7 PT-IP Assessment and Plan Start: 09/26/18 17:44 Freq: NEEDED Status: Active Protocol: Document 09/28/18 11:00 GGD (Rec: 09/28/18 11:58 GGD [id number]) PT Summary Assessment and Plan Summary Assessment Summary Pt improving with mobility. She was safe and stable with gait . She had no LOB or unsteadiness. She safe for home D/C when medically stable. Frequency of Treatment Frequency Of Treatment Twice a Day Treatment Plan Physical Therapy Treatment Plan Bed Mobility Training Transfer Training Gait Training Therapeutic Exercise Balance Retraining Post Op Education Discharge Planning Hot or Cold Pack Neuromuscular Re-ed Coordination Retraining Manual Therapy Other Recommendations and Next Treatment ambulation, stair climbing Focus training Recommendations To Nursing Amount of Assist Needed 1 Person Assist Discharge Recommendations PT Discharge Recommendations Home with Assistance Outpatient PT
--- NOTE | 2018-09-29 11:49 | CM.DPNOTE ---
Addendum entered by RONALD Rossi 09/29/18 11:51: Late Entry Original Note: Reviewed chart and saw pt leaving hospital room, no barriers to safe return home w/ friend 3.7.19. Pt aware and agreeable to DCP, IMM reviewed and verbal obtained. MISSY
== END 2018-09-28 14:04 | disposition home or self-care (01) ==
LOC: AC 09-28 07:29 → OR 09-28 15:44
PROVIDERS: Admitting Provider Physician Assistant; Visit Provider Orthopaedic Surgery
PROC: 0SRD0JZ Replacement of Left Knee Joint with Synthetic Substitute, Open Approach (ICD-10-PCS; CPT 27447; principal; 2018-09-26 10:45)
DX: M17.12 Unilateral primary osteoarthritis, left knee (principal); E16.2 Hypoglycemia, unspecified; M48.02 Spinal stenosis, cervical region
CPT/HCPCS: 27447; 36415; 73560; 85014; 85018; 94760; 97110; 97116; 97161; 97530; C1776; G0378; C9290; J0690; J2250; J2704; J3010; J3370